=== PATIENT | female | born 1960 | race Caucasian/White ===

== ENCOUNTER → 2016-04-29 | Outpatient (CLI) | payer OTHER, BC ==
--- NOTE | 2016-04-29 21:43 | DI ---
CT CERVICAL SPINE SCAN, 04/29/2016 12:53 PM : Clinical History: Cervical radiculopathy. Previous Exam: 10/26/2014. Scans are performed from T2 to the base of the skull without IV contrast. Sagittal and coronal reform atted images are generated. Curved coronal reformatted images and axial reformatted images angled thr ough the disc spaces are also performed. The patient is status post anterior fusions at C3-4 C4-5 and C5-6. The C5-6 fusion is not solid. Ther e is disc space narrowing at C2-3 and the C6-7 and C7-T1 disc spaces are of normal height. There has been partial resections of the spinous processes from C3-C5. There is mild anterior subluxation of C2 on C3 by 1 mm. C1 articulates normally with C2 and the occiput but there are degenerative changes be tween the dens and anterior arch of C1.. Prevertebral soft tissue planes are normal. C2-3 has a small midline bulging but not herniated disc without canal or neural foraminal stenosis. T here is no canal or neural foraminal stenosis at the C3-4 level. Posterior fusions have been performe d between the lateral masses of C3 and C5 with metallic plates transfixed with threaded screws insert ed into the lateral masses of C3 and C4. These apophyseal joints are fused bilaterally. C4-5 has exte nsive artifacts from a metallic screw but no canal or neural foraminal stenosis is present. C5-6 show s no canal or neural foraminal stenosis. The anterior fusion is not solid, and the C5-6 the zygapophy seal joints bilaterally are patent. There are lucencies surrounding the threaded screws transfixing t he anterior plate to the body of C4 suggesting there is motion at this level. C6-7 has an anterior bu lging but not herniated disc is partially calcified. There is no canal or neural foraminal stenosis. C7-T1 also has an anterior bulging but not herniated disc without canal or neural foraminal stenosis. There is no canal or neural foraminal stenosis at T1-2. Apical bullae are present bilaterally indica ting this patient has bullous emphysema. READIN. Status post anterior and posterior fusions between C3-4 and C4-5 with an anterior fusion at C5-6. The anterior fusion at C5-6 is not solid. The anterior and posterior fusions at C3-4 and C4-5 are so lid. There is no canal or neural foraminal stenosis at these levels. 2. There are bulging but not herniated discs without canal or neural foraminal stenosis at C2-3, C6- 7, and C7-T1. The T1-2 disc space appears normal.
== END ==
LOC: CT 12:44
PROVIDERS: ATTEND Neurological Surgery
DX: M54.12 Radiculopathy, cervical region (principal); Z98.1 Arthrodesis status
CPT/HCPCS: 72125

== ENCOUNTER → 2016-05-07 | Outpatient (CLI) | payer OTHER, BC ==
--- NOTE | 2016-05-07 11:05 | DI ---
MRI CERVICAL SPINE SCAN, 05/07/2016 9:29 AM: Clinical History: Cervical radiculopathy. Previous Exam: 12/15/2014. Sequences: Sagittal T1and T2 weighted. Axial T2 PLUS and FE 3D DUAL. Coronal T1 scans through the [facility] cervical spine. The patient is status post anterior fusions at C3-4 through C5-6, and the C5-6 level is not fused. Re section of the spinous processes has been performed between C3 and C5. The C2-3 and C6-7 and C7-T1 di sc spaces are of normal height and show desiccation change. The cervical cord and cerebellar tonsils are normal. C2-3 has a mild central bulging but not herniated disc without canal or neural foraminal stenosis. The C3-4, C4-5, and C5-6 levels show no canal or neural foraminal stenosis. C6-7 has a mild midline bulging but not herniated disc without canal or neural foraminal stenosis. C7-T1 also has a midline disc bulge without canal or neural foraminal stenosis. The T1-2 through T5-6 disc spaces are normal. There is an incidental finding of a mildly enlarged sella turcica with virtually complete merrick ling of the sella by CSF. This is consistent with the "empty" sella syndrome. Readin. Status post anterior fusions from C3-4 through C5-6 with resections of the spinous processes at t hese levels. The C3-4 and C4-5 fusions are solid. The C5-6 fusion does not show fusion. There is no c anal or neural foraminal stenosis. 2. There are bulging but not herniated discs without canal or neural foraminal stenosis at C2-3, C6- 7, and C7-T1. 3. The T1-2 through T5-6 disc spaces are normal.
== END ==
LOC: MRI 09:20
PROVIDERS: ATTEND Neurological Surgery
DX: M54.12 Radiculopathy, cervical region (principal); M47.812 Spondylosis without myelopathy or radiculopathy, cervical region
CPT/HCPCS: 72141

== ENCOUNTER → 2016-05-21 | Outpatient (CLI) | payer OTHER, BC | LOC: MMPC 11:11 | PROVIDERS: ATTEND Nurse Practitioner | DX: J01.01 Acute recurrent maxillary sinusitis (principal); J20.9 Acute bronchitis, unspecified | CPT/HCPCS: 99214 ==

== ENCOUNTER → 2016-06-13 | Outpatient (CLI) | payer OTHER, BC ==
[2016-06-13 13:19] LABS: BLOOD UREA NITROGEN 9 mg/dL (7-22); CALCIUM 9.4 mg/dL (8.7-10.7); CHLORIDE 92 meq/L (98-112); CREATININE 0.5 mg/dL (0.50-1.20); EST GLOMERULAR FILTRATION > 60 (>60 ml/min/1.73m(2)); GLUCOSE 96 mg/dL (78-110); POTASSIUM 4.2 meq/L (3.8-5.2); SODIUM 128 meq/L (135-145)
== END ==
LOC: LAB 12:22
PROVIDERS: ATTEND Internal Medicine
DX: M81.0 Age-related osteoporosis without current pathological fracture (principal)
CPT/HCPCS: 36415; 80048; 82306

== ENCOUNTER → 2016-06-20 | Outpatient (CLI) | payer OTHER, BC | LOC: MMPC 11:11 | PROVIDERS: ATTEND Internal Medicine | DX: M81.0 Age-related osteoporosis without current pathological fracture (principal); E55.9 Vitamin D deficiency, unspecified | CPT/HCPCS: G0463; J0897 ==

== ENCOUNTER → 2016-07-24 | Outpatient (CLI) | payer OTHER, BC | LOC: LAB 12:51 | PROVIDERS: ATTEND Internal Medicine | DX: E55.9 Vitamin D deficiency, unspecified (principal); M81.0 Age-related osteoporosis without current pathological fracture; G89.29 Other chronic pain; M54.5 Low back pain; M54.6 Pain in thoracic spine; M54.2 Cervicalgia; F17.200 Nicotine dependence, unspecified, uncomplicated; Z02.89 Encounter for other administrative examinations | CPT/HCPCS: 36415; 82306; 99214; G0463 ==

== ENCOUNTER → 2016-11-13 | Outpatient (CLI) | payer OTHER, BC | LOC: LAB 12:30 | PROVIDERS: ATTEND Internal Medicine | DX: E55.9 Vitamin D deficiency, unspecified (principal); M54.5 Low back pain; M54.2 Cervicalgia; M54.6 Pain in thoracic spine; J32.4 Chronic pansinusitis; E89.0 Postprocedural hypothyroidism; Z72.0 Tobacco use | CPT/HCPCS: 36415; 82306 ==